=== PATIENT | female | born 1990 ===

== ENCOUNTER 2016-06-28 10:15 | Inpatient (IN) | payer OTHER ==
[2016-06-28 10:31] VITALS: BMI 35.7
[2016-06-28] MEDS ORDERED: Oxytocin 30 units/LR 500ML 30 U/500 ML BAG IV ONE (10:47)
[2016-06-28] MEDS ORDERED: Lidocaine 1% Inj (20ml) ONE (10:47)
[2016-06-28] MEDS: Lactated Ringer's 1,000 ML IV SCH ×2 (11:00→12:00)
--- NOTE | 2016-06-28 11:11 | OBADHP ---
Datetime: 06/28/2016 10:57 Admit Comment, IP Provider: Patient is a 25 yo @ 39.2 with contractions. Some increased disc harge, no vaginal bleeding, +FM. Patient denies antepartum issues, no medical problems, previous x 1, no previous surgeries, no medications VE=8/100/-1 FHR= 130 mod chaparrita +accels, no decels TOCO= ctxing q 2 mins A/P 1. Patient admitted to labor and deliver, IVF started, CBC/Type and Screen 2. CEFM and TOCO 3. Patient would like epidural Pelvic Type - PN: Adequate Extremities - PN: Normal Abdomen - PN: Normal Back - PN: Normal Breast - PN: Normal Lungs - PN: Normal Heart - PN: Normal Thyroid - PN: Normal Neurologic - PN: Normal HEENT - PN: Normal General - PN: Normal FHR - Baseline A Provider: 130 Contraction Comments Provider: q 2 mins Vital Signs Provider: Reviewed; Within Normal Limits IP Chief Complaint: Uterine contractions NICHD Variability Prov Fetus A: Moderate 6-25bpm NICHD Accel Fetus A IP Provider: [id number] NICHD Decel Fetus A IP Provider: None Dilatation, Provider: 8 Effacement, Provider: 100 Station, Provider: -1 Genitourinary Exam: Normal DTRs - PN: Normal EGA AdmitDate IP: 39.2 IP Adm Impression: Term, intrauterine IP Admit Plan: Admit to unit; Initiate labor protocol Datetime: 03/01/2016 22:28 IP Chief Complaint Other: cramps
[2016-06-28] MEDS: Oxytocin 30 units/LR 500ML 30 U/500 ML BAG IV SCH ×3 (11:30→12:54)
[2016-06-28 11:31] LABS: BASO # 0.1 K/uL (0.0-0.2); BASO % 0.7 % (0.0-2.0); EOS % 0.3 % (0.0-4.0); HEMATOCRIT 36.1 % (34.0-47.0); LYMPH # 1.4 K/uL (1.0-4.3); LYMPH % 10.9 % (20.0-40.0); MEAN CELL VOLUME 82.7 fl (81.0-99.0); MEAN CORPUSCULAR HEMOGLOBIN 26.3 pg (27.0-31.0); MEAN CORPUSCULAR HGB CONC 31.8 g/dL (33.0-37.0); MEAN PLATELET VOLUME 8.2 fl (7.2-11.7); MONO % 7.6 % (0.0-10.0); NEUT # 10.5 K/uL (1.8-7.0); NEUT % 80.5 % (50.0-75.0); RED CELL DISTRIBUTION WIDTH 16.7 % (11.5-14.5); WHITE BLOOD COUNT 13.1 K/uL (4.8-10.8)
[2016-06-28 11:40] VITALS: BP 127/61; PULSE 83; RESP 18; TEMP 97.3
[2016-06-28] MEDS ORDERED: Oxycodone/Acetaminophen 5/325 mg Tab PO PRN ×2 (11:41→14:20)
--- NOTE | 2016-06-28 11:57 | OBDS ---
DELIVERY PERSONNEL Delivery Doctor: Andrea Najera MD Component Technician: Kelly Carpenter RN MATERNAL INFORMATION Delivery Anesthesia: Local Medications in Delivery: pitocin Estimated Blood Loss (ml): 250cc Placenta Cultured: No Maternal Complications: Other Other Maternal Complications: meconium stained fluid Provider Comments: Delivered a living Baby boy apperars term, cried spontanously aspirated with bulb , AF meconium stained Placenta delivered complete and intact. Uterus contracted well, a small super ficial tear as above repaired as above. Tolerated procedure well no complications A small wart like lession on the lower perineal introital area noted. Rectal done no defects LABOR SUMMARY EDC: 07/03/2016 00:00 No. Babies in Womb: 0 Attempted: No Labor Anesthesia: None LABOR INFORMATION Reason for Induction: Not Applicable Onset of Labor: 06/28/2016 08:00 Oxytocin: N/A Group B Beta Strep: Negative Steroids Given: None Reason Steroids Not Administered: Not Applicable MEMBRANES Membranes Rupture Method: Artificial Rupture of Membranes: 06/28/2016 11:20 Length of Rupture (hrs): 0.05 Amniotic Fluid Color: Light Meconium Amniotic Fluid Amount: Small Amniotic Fluid Odor: Normal STAGES OF LABOR Stage 3 hrs: 0 Stage 3 min: 7 Total Time in Labor hrs: 3 Total Time in Labor min: 30 VAGINAL DELIVERY Episiotomy: None Laceration Extension: First Degree Laceration Type: Vaginal Laceration Repair: Yes Laceration Repair Note: small laceration on the right labia-introital area repaired with 4-0 chromic x2 fig of 8 sutures without any complication Initial Vag Sponge Count: 10 Final Vag Sponge Count: 10 Initial Vag Sharps Count: 2 Final Vag Sharps Count: 2 Sponge Count Correct: Yes Sharps Count Correct: Yes Count Comment: count correct CSECTION DELIVERY Primary Indication: N/A Secondary Indication: N/A CSection Incision: N/A Uterine Closure: N/A BABY A INFORMATION Infant Delivery Date/Time: 06/28/2016 11:23 Method of Delivery: Vaginal Born in Route : No : N/A Forceps: N/A Vacuum Extraction: N/A Shoulder Dystocia : No SHOULDER DYSTOCIA BABY A Delivery Date/Time: 06/28/2016 11:23 PRESENTATION/POSITION BABY A Presentation: Cephalic Cephalic Presentation: Vertex PLACENTA INFORMATION BABY A Placenta Delivery Time : 06/28/2016 11:30 Placenta Method of Delivery: Spontaneous Placenta Status: Delivered SCORES BABY A Heart Rate 1 min: >100 bpm Resp Effort 1 min: Good Cry Reflex Irritability 1 min: Cough or Sneeze or Pulls Away Muscle Tone 1 min: Active Motion Color 1 min: Body [place], Extremities Blue Resuscitation Effort 1 min: Tactile Stimulation SCORE 1 MIN: 9 Heart Rate 5 min: >100 bpm Resp Effort 5 min: Good Cry Reflex Irritability 5 min: Cough or Sneeze or Pulls Away Muscle Tone 5 min: Active Motion Color 5 min: Body [place], Extremities Blue Resuscitation Effort 5 min: Tactile Stimulation SCORE 5 MIN: 9 INFANT INFORMATION BABY A Gestational Age at Delivery: 39.0 Gestational Status: Term Infant Outcome : Liveborn Condition : Stable Infant Sex: Male IDENTIFICATION/MEDS BABY A ID Band Number: [id number] ID Band Location: Left Leg; Left Arm Vitamin K Given : Not Given Erythromycin Given: Not Given WEIGHT/LENGTH BABY A Infant Birthweight (gms): 3370 Weight (lb): 7 Weight (oz): 7 CORD INFORMATION BABY A No. Cord Vessels: 3 Nuchal Cord : N/A Cord Blood Taken: Yes Suction: Mouth; Nose ASSESSMENT BABY A Complications: None Physical Findings at Delivery: Within Normal Limits Respirations: Appears Normal Materials Scheduler/ALS Called : No Infant Care By: dr. Wood Transferred To: [facility]
[2016-06-29 05:42] LABS: HEMATOCRIT 30.1 % (34.0-47.0); MEAN CELL VOLUME 83.2 fl (81.0-99.0); MEAN CORPUSCULAR HEMOGLOBIN 26.8 pg (27.0-31.0); MEAN CORPUSCULAR HGB CONC 32.2 g/dL (33.0-37.0); RED CELL DISTRIBUTION WIDTH 16.7 % (11.5-14.5)
--- NOTE | 2016-06-29 09:23 | OBPPN ---
Datetime: 06/29/2016 09:18 PP Pain Prov: Within normal limits PP Nausea Prov: Denies PP Flatus Prov: Yes PP BM Prov: No PP Breasts Prov: Normal PP Heart Prov: Normal PP Lungs Prov: Normal PP Abdomen/Uterus Prov: Normal PP Lochia Prov: Normal PP Vulva/Perineum Prov: Normal PP CVA Tenderness Prov: Normal PP Extremities Prov: Normal PP Progress Prov: Normal PP Impression Prov: Normal progression PP Plan Prov: Continue present management PP Progress Note Prov: no complaints today continue present care stable ppd 1 IP PP Procedures: None Vital Signs Provider PP: Reviewed; Within Normal Limits
--- NOTE | 2016-06-30 08:44 | OBPPN ---
Datetime: 06/30/2016 08:41 PP Pain Prov: Within normal limits PP Nausea Prov: Denies PP Flatus Prov: Yes PP BM Prov: Yes PP Breasts Prov: Normal PP Heart Prov: Normal PP Lungs Prov: Normal PP Abdomen/Uterus Prov: Normal PP Lochia Prov: Normal PP Vulva/Perineum Prov: Normal PP CVA Tenderness Prov: Normal PP Extremities Prov: Normal PP Progress Prov: Normal PP Impression Prov: Normal progression PP Plan Prov: Continue present management PP Progress Note Prov: stable ppd2 dc home today IP PP Procedures: None Vital Signs Provider PP: Reviewed; Within Normal Limits
--- NOTE | 2016-06-30 08:48 | OBDCSUM ---
Datetime: 06/30/2016 08:43 Discharged to, Provider: Home Follow up at, Provider: Disch Instr Activity: May be up to bathroom; May be up for meals; May Shower Disch Instr Diet: Regular Discharge Instructions, Provider: Routine instructions given Discharge Diagnosis, Provider: Term Delivered Discharge Time: 06/30/2016 08:43 Follow up in weeks, Provider: 5-6 weeks Disch Referrals: None Disch Activity Restrictions: No exercising; No lifting; No driving; Minimize walking; Minimize stair -climbing; No sexual activity; Nothing in vagina - [place], tampons, douche Discharge Comment, Provider: dc home today rto 5-65 weeks call office if any problems Contraception after Delivery: Undecided
== END 2016-06-30 14:30 | disposition home or self-care (01) | DRG 373 ==
LOC: H.EROB2 10:15 → H.L&D 10:54 → H.OB/GYN 13:55
PROVIDERS: ADMIT Specialist; ATTEND Specialist
PROC: 10E0XZZ Delivery of Products of Conception, External Approach (ICD-10-PCS; principal; 2016-06-28)
PROC: 4A1HXCZ Monitoring of Products of Conception, Cardiac Rate, External Approach (ICD-10-PCS; 2016-06-28)
DX: O70.0 First degree perineal laceration during delivery (principal); O77.0 Labor and delivery complicated by meconium in amniotic fluid; Z37.0 Single live birth; Z3A.39 39 weeks gestation of pregnancy

== ENCOUNTER 2017-03-20 02:54 | Emergency (ER) | payer SELFPAY ==
[2017-03-20 02:54] VITALS: BMI 35.7
[2017-03-20 03:06] VITALS: BP 133/82; PULSE 100; RESP 18; TEMP 97.6; O2SAT 98
--- NOTE | 2017-03-20 03:14 | ED PDOC ---
HPI: General Adult Time Seen by Provider: 03/20/17 03:13 Chief Complaint (Nursing): Flu-like Symptoms Chief Complaint (Provider): COUGH History Per: Patient (26 Y/O FEMALE HERE WITH COUGH X 4 DAYS. NOTES NASAL CONGESTION. DENIES ANY VOMITING/DIARRHEA/FEVERS/CHILLS. TAKING ROBITUSSIN FOR SYMPTOMS. PATIENT'S INFANT IS POSITIVE WITH INFLUENZA B.) Past Medical History Reviewed: Historical Data, Nursing Documentation, Vital Signs Vital Signs: Last Vital Signs Temp 97.6 F 03/20/17 03:03 Pulse 100 H 03/20/17 03:03 Resp 18 03/20/17 03:03 BP 133/82 03/20/17 03:03 Pulse Ox 98 03/20/17 05:57 - Family History Family History: States: No Known Family Hx - Home Medications Home Medications: Ambulatory Orders Medication Instructions Recorded Multivit/Folic Acid/I 1 tab PO DAILY 06/28/16 [] Oseltamivir [Tamiflu] 75 mg PO DAILY #5 cap 03/20/17 Pseudoephedrine [Sudafed Tab] 60 mg PO Q6 PRN #24 tab 03/20/17 - Allergies Allergies/Adverse Reactions: Allergies Allergy/AdvReac Type Severity Reaction Status Date / Time No Known Allergies Allergy Verified 03/20/17 03:03 Review of Systems ROS Statement: Except As Marked, All Systems Reviewed And Found Negative Constitutional: Positive for: Fever Respiratory: Positive for: Cough Physical Exam - Reviewed Nursing Documentation Reviewed: Yes Vital Signs Reviewed: Yes - Physical Exam Appears: Positive for: Well, Non-toxic, No Acute Distress Head Exam: Positive for: ATRAUMATIC, NORMAL INSPECTION, NORMOCEPHALIC Skin: Positive for: Normal Color, Warm, DRY Eye Exam: Positive for: EOMI, Normal appearance, PERRL ENT: Positive for: Normal ENT Inspection Neck: Positive for: Normal, Painless ROM Cardiovascular/Chest: Positive for: Regular Rate, Rhythm Respiratory: Positive for: CNT, Normal Breath Sounds Gastrointestinal/Abdominal: Positive for: Normal Exam, Bowel Sounds, Soft Back: Positive for: Normal Inspection Extremity: Positive for: Normal ROM Neurologic/Psych: Positive for: Alert, Oriented - ECG O2 Sat by Pulse Oximetry: 98 - Progress ED Course And Treament: INFLUENZA A/B NEGATIVE PATIENT APPEARS TO HAVE URI. WE WILL OFFER TAMIFLU PROPHYLAXIS HER SON IS POSITIVE WITH FLU B Disposition - Clinical Impression Clinical Impression: Cough - Patient ED Disposition Is Patient to be Admitted: No - Disposition Disposition: Routine/Home Disposition Time: 05:05 Condition: FAIR Prescriptions: Oseltamivir [Tamiflu] 75 mg PO DAILY #5 cap Pseudoephedrine [Sudafed Tab] 60 mg PO Q6 PRN #24 tab PRN Reason: Nasal Congestion Instructions: Viral Syndrome (ED) Forms: [email or web address] Connect (Ukrainian), [facility] ED School/Work Excuse
== END 2017-03-20 05:05 | disposition home or self-care (01) ==
LOC: H.ER 02:54
DX: B34.9 Viral infection, unspecified (principal)

== ENCOUNTER 2017-04-05 14:39 | Emergency (ER) | payer OTHER ==
[2017-04-05 14:39] VITALS: BMI 35.7
[2017-04-05 14:52] VITALS: BP 123/67; PULSE 102; RESP 18; TEMP 97; O2SAT 97
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
--- NOTE | 2017-04-05 16:07 | RAD ---
PROCEDURE: Radiographs of the left elbow. HISTORY: pain COMPARISON: No prior. FINDINGS: BONES: Bone alignment and mineralization are normal. There is no acute displaced fracture or bone destruction. JOINTS: Normal. SOFT TISSUES: Normal. JOINT EFFUSION: None. OTHER FINDINGS: None IMPRESSION: No acute fracture or dislocation.
== END 2017-04-05 17:06 | disposition home or self-care (01) ==
LOC: H.ER 14:39
DX: S50.02XA Contusion of left elbow, initial encounter (principal); V43.52XA Car driver injured in collision with other type car in traffic accident, initial encounter; Y92.410 Unspecified street and highway as the place of occurrence of the external cause

== ENCOUNTER 2018-02-24 15:46 | Emergency (ER) | payer OTHER ==
[2018-02-24 15:46] VITALS: BMI 35.7
[2018-02-24 16:42] VITALS: BP 132/75; PULSE 86; RESP 18; TEMP 98.3; O2SAT 99
--- NOTE | 2018-02-24 18:07 | ED PDOC ---
HPI: Female Pain Time Seen by Provider: 02/24/18 18:05 Chief Complaint (Nursing): Female Genitourinary Chief Complaint (Provider): vaginal bleeding/abdominal pain History Per: Patient (27 y/o female approx 8 weeks gestation here with vaginal spotting noted today. Patient notes additional abdominal pain/back pain. Denies any dysuria. Patient has appt next week with clinical research assistant for ultrasound but has not done so.) Past Medical History Reviewed: Historical Data, Nursing Documentation, Vital Signs Vital Signs: Last Vital Signs Temp 98.3 F 02/24/18 16:39 Pulse 86 02/24/18 16:39 Resp 18 02/24/18 16:39 BP 132/75 02/24/18 16:39 Pulse Ox 99 02/24/18 16:39 - Family History Family History: States: Unknown Family Hx - Home Medications Home Medications: Ambulatory Orders Medication Instructions Recorded Multivit/Folic Acid/I 1 tab PO DAILY 06/28/16 [] Oseltamivir Cap [Tamiflu] 75 mg PO DAILY #5 cap 03/20/17 Pseudoephedrine [Sudafed Tab] 60 mg PO Q6 PRN #24 tab 03/20/17 Naproxen 500 mg PO BID PRN #20 tablet 04/05/17 - Allergies Allergies/Adverse Reactions: Allergies Allergy/AdvReac Type Severity Reaction Status Date / Time No Known Allergies Allergy Verified 03/20/17 03:03 Review of Systems ROS Statement: Except As Marked, All Systems Reviewed And Found Negative Gastrointestinal: Positive for: Abdominal Pain Genitourinary Female: Positive for: Vaginal Bleeding Physical Exam - Reviewed Nursing Documentation Reviewed: Yes Vital Signs Reviewed: Yes - Physical Exam Appears: Positive for: Well, Non-toxic, No Acute Distress Head Exam: Positive for: ATRAUMATIC, NORMAL INSPECTION, NORMOCEPHALIC Skin: Positive for: Normal Color, Warm, DRY Eye Exam: Positive for: EOMI, Normal appearance, PERRL ENT: Positive for: Normal ENT Inspection Neck: Positive for: Normal, Painless ROM Cardiovascular/Chest: Positive for: Regular Rate, Rhythm Respiratory: Positive for: CNT, Normal Breath Sounds Gastrointestinal/Abdominal: Positive for: Normal Exam, Soft Back: Positive for: Normal Inspection Extremity: Positive for: Normal ROM Neurologic/Psych: Positive for: Alert, Oriented - Laboratory Results Result Diagrams: 02/24/18 18:15 02/24/18 19:30 - ECG O2 Sat by Pulse Oximetry: 99 - Progress ED Course And Treament: TRANSVAGINAL US: Intrauterine gestational sac with estimated gestational age 6 weeks 1 day. Gestational sac contour appears somewhat irregular. 9 mm yolk sac, enlarged. pole is not identified. Correlate clinically. Follow-up as indicated. Disposition - Clinical Impression Clinical Impression: Threatened - Patient ED Disposition Is Patient to be Admitted: No - Disposition Disposition: Routine/Home Disposition Time: 19:53 Condition: FAIR Instructions: Bleeding With (DC) Forms: [facility] ED School/Work Excuse
[2018-02-24 18:25] LABS: BASO # 0.1 K/uL (0.0-0.2); BASO % 0.9 % (0.0-2.0); EOS # 0.2 K/uL (0.0-0.7); EOS % 1.5 % (0.0-4.0); HEMOGLOBIN 12.9 g/dL (12.0-16.0); LYMPH # 2.3 K/uL (1.0-4.3); MEAN CELL VOLUME 86.4 fl (81.0-99.0); MEAN CORPUSCULAR HEMOGLOBIN 28.7 pg (27.0-31.0); MEAN CORPUSCULAR HGB CONC 33.2 g/dL (33.0-37.0); MEAN PLATELET VOLUME 7.6 fl (7.2-11.7); MONO # 0.8 K/uL (0.0-0.8); MONO % 7.7 % (0.0-10.0); NEUT # 7.2 K/uL (1.8-7.0); NEUT % 67.9 % (50.0-75.0); NRBC % 0.1 % (0.0-0.0); RBC 4.5 Mil/uL (3.80-5.20); RED CELL DISTRIBUTION WIDTH 14.7 % (11.5-14.5); WHITE BLOOD COUNT 10.5 K/uL (4.8-10.8)
--- NOTE | 2018-02-24 18:58 | US ---
[place] [facility] [place]: threatened [place]riage Comparison: OB limited ultrasound performed 11/08/15 Technique: Ob transvaginal ultrasound. Findings: Uterus measures approximately 9.0 x 5.4 x 7.2 cm. Anteverted. Cervix length measures approximately 4.3 cm. There is a single intrauterine fetus present. 9 mm yolk sac. The gestational sac measures 1.8 cm and is compatible with a gestational age of 6 weeks 1 day. Gestational sac contour appears somewhat irregular. pole is not identified. The right ovary measures 3.8 x 2.6 x 3.4 cm and contains 1.5 cm cyst. The left ovary measures 3.2 x 2.2 x 1.7 cm. Blood flow was demonstrated to both ovaries. Impression: Intrauterine gestational sac with estimated gestational age 6 weeks 1 day. Gestational sac contour appears somewhat irregular. 9 mm yolk sac, enlarged. pole is not identified. Correlate clinically. Follow-up as indicated.
[2018-02-24 19:46] LABS: BLOOD UREA NITROGEN 8 mg/dl (7-17); CALCIUM 9.6 mg/dL (8.4-10.2); GFR NON-AFRICAN AMERICAN > 60
== END 2018-02-24 18:45 | disposition home or self-care (01) ==
LOC: H.ER 15:46
DX: O20.0 Threatened abortion (principal); Z3A.08 8 weeks gestation of pregnancy

== ENCOUNTER 2018-03-03 22:11 | Emergency (ER) | payer OTHER ==
[2018-03-03 22:12] VITALS: BMI 35.7
[2018-03-03] MEDS ORDERED: Sodium Chloride 0.9% 1,000 ML IV STA (22:54)
[2018-03-03 23:06] LABS: BASO % 0.5 % (0.0-2.0); EOS # 0.2 K/uL (0.0-0.7); EOS % 2.8 % (0.0-4.0); HEMOGLOBIN 12.5 g/dL (12.0-16.0); LYMPH # 1.5 K/uL (1.0-4.3); LYMPH % 22.5 % (20.0-40.0); MEAN CELL VOLUME 85.7 fl (81.0-99.0); MEAN CORPUSCULAR HEMOGLOBIN 28.4 pg (27.0-31.0); MEAN CORPUSCULAR HGB CONC 33.1 g/dL (33.0-37.0); MEAN PLATELET VOLUME 7.8 fl (7.2-11.7); MONO # 0.8 K/uL (0.0-0.8); MONO % 11.7 % (0.0-10.0); NEUT # 4.3 K/uL (1.8-7.0); NEUT % 62.5 % (50.0-75.0); NRBC % 0.1 % (0.0-0.0); RBC 4.4 Mil/uL (3.80-5.20); RED CELL DISTRIBUTION WIDTH 14.5 % (11.5-14.5); WHITE BLOOD COUNT 6.9 K/uL (4.8-10.8)
[2018-03-03 23:20] LABS: BLOOD UREA NITROGEN 8 mg/dl (7-17); CALCIUM 9.2 mg/dL (8.4-10.2); GFR NON-AFRICAN AMERICAN > 60
--- NOTE | 2018-03-03 23:53 | ED PDOC ---
HPI: Female Pain Time Seen by Provider: 03/03/18 22:52 Chief Complaint (Nursing): Female Genitourinary Chief Complaint (Provider): Female Genitourinary History Per: Patient History/Exam Limitations: no limitations Onset/Duration Of Symptoms: Days Current Symptoms Are (Timing): Still Present Additional Complaint(s): 27 y/o female who is approximately 7-8 weeks presents to the ED for evaluation of worsening vaginal bleeding. Patient worked up for possible m iscarriage approximately 2-3 days ago with an IUP without pole seen. Patient reports of having soaked through 5 pads within the last couple of hours. Patient notes large clots and worsening pain. Patient states she has not seen passage of tissue. Otherwise, patient denies vomiting and fever. PMD: Joo Orozco Abnormal Vaginal Bleeding: Yes Past Medical History Reviewed: Historical Data, Nursing Documentation, Vital Signs Vital Signs: Last Vital Signs Temp 97.8 F 03/03/18 22:24 Pulse 96 H 03/03/18 22:24 Resp 17 03/03/18 22:24 BP 115/76 03/03/18 22:24 Pulse Ox 96 03/03/18 22:24 - Medical History PMH: No Chronic Diseases - Surgical History Surgical History: No Surg Hx - Family History Family History: States: Unknown Family Hx - Home Medications Home Medications: Ambulatory Orders Medication Instructions Recorded RX: Multivit/Folic Acid/I 1 tab PO DAILY 06/28/16 [] Oseltamivir Cap [Tamiflu] 75 mg PO DAILY #5 cap 03/20/17 RX: Pseudoephedrine [Sudafed Tab] 60 mg PO Q6 PRN #24 tab 03/20/17 RX: Naproxen 500 mg PO BID PRN #20 tablet 04/05/17 - Allergies Allergies/Adverse Reactions: Allergies Allergy/AdvReac Type Severity Reaction Status Date / Time No Known Allergies Allergy Verified 03/03/18 22:29 Review of Systems ROS Statement: Except As Marked, All Systems Reviewed And Found Negative Constitutional: Negative for: Fever Gastrointestinal: Negative for: Vomiting Genitourinary Female: Positive for: Vaginal Bleeding Physical Exam - Reviewed Nursing Documentation Reviewed: Yes Vital Signs Reviewed: Yes - Physical Exam Appears: Positive for: Uncomfortable Head Exam: Positive for: ATRAUMATIC Skin: Positive for: Normal Color, Warm, Dry Eye Exam: Positive for: Normal appearance, EOMI, PERRL Neck: Positive for: Normal, Painless ROM Cardiovascular/Chest: Positive for: Regular Rate, Rhythm. Negative for: Murmur Respiratory: Positive for: Normal Breath Sounds. 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 Negative for: L CVA Tenderness, R CVA Tenderness Extremity: Positive for: Normal ROM. Negative for: Deformity Neurologic/Psych: Positive for: Alert, Oriented. Negative for: Motor/Sensory Deficits - Laboratory Results Result Diagrams: 03/03/18 23:03 03/03/18 23:03 Lab Results: Beta HCG, Quant 1861.70 mIU/mL 03/03/18 23:03 - ECG O2 Sat by Pulse Oximetry: 96 (RA) Pulse Ox Interpretation: Normal Medical Decision Making Medical Decision Making: Time: 2254 A/P: Workup for threatened -- HCG for comparison -- Repeat Pelvic US for presence of IUP -- IV fluids and Tylenol for pain -- Reassess patient -- BMP -- Beta-HCG, Quantitative -- CBC with differentials -- Sodium Chloride IV 1000 mls/hr -- Tylenol 650 mg PO -- US Preg 1st Trimester/OB TV Time: 17 US RESULTS Findings: The uterus measures 11x6.7x8 cm. Normal cervical length measuring 4.5 cm. Anteverted uterus. Fundal fibroid is noted measuring 2.3 cm. No evidence of intrauterine . Normal ovaries. Impression: Heterogeneous complex endometrium without evidence of intrauterine . The maximum thickness of the endometrium is 20 mm. Electronically signed on Mar 04, 2018 12:18:50 AM EST by: Ricardo Felix M.D., Certified by [facility], MSK, Neuroradiology Time: 39 -- Discussed miscarriage with patient. Labs within normal limits. Patient to return to ED if bleeding worsens, pain worsens or development of weakness, palpitations, nausea, vomiting or fever. Patient instructed to contact Guidance Counselor tomorrow for a follow up with provider next week. Work note additionally given for absence. Patient is O+ and does not need rhogan. Scribe Attestation: Documented by Derek Barone, acting as a scribe for Winter Wilson MD. Provider Scribe Attestation: All medical record entries made by the Scribe were at my direction and personally dictated by me. I have reviewed the chart and agree that the record accurately reflects my personal performance of the history, physical exam, medical decision making, and the department course for this patient. I have also personally directed, reviewed, and agree with the discharge instructions and disposition. Disposition - Clinical Impression Clinical Impression: Miscarriage - Patient ED Disposition Is Patient to be Admitted: No Counseled Patient/Family Regarding: Studies Performed, Diagnosis, Need For Followup - Disposition Disposition: Routine/Home Disposition Time: 00:40 Condition: STABLE Additional Instructions: Contact chief electrician later today (03/04/18) to arrange follow up early next week. Return to the emegency department if you develop worsened bleeding, dizziness, weakness, fever, or other new symptoms. Instructions: Dealing With Miscarriage, Miscarriage (DC) Forms: [employer] [facility] ([place]an), [facility] ED School/Work Excuse Print Language: IRANIAN
[2018-03-04 01:05] VITALS: BP 120/81; PULSE 90; RESP 16; TEMP 98.2
--- NOTE | 2018-03-04 11:50 | US ---
Date of service: 03/03/2018 PROCEDURE: First trimester ultrasound LMP 12/29/2017. HISTORY: vaginal bleed, poss COMPARISON: 02/24/2018. Summary of findings on the comparison examination: Irregular gestational sac contour. Yolk sac documented. No pole visible at that time. TECHNIQUE: Standard protocol for this study/examination. FINDINGS: Uterus measures 6.7 x 8 x 11 cm. Posterior fundal fibroid 1.9 x 2.1 x 2 No visible intrauterine products of conception. Endometrial echo complex 12.2 mm. Endometrium is mildly heterogeneous. Closed cervix 4.57 cm. Right adnexa: 1.7 x 3.1 cm. Multiple subcentimeter follicles. Left adnexa 1.5 x 3.3 cm. Multiple subcentimeter follicles. IMPRESSION: No visible intrauterine or ectopic products of conception. Gestational sac identified previously no longer apparent. Normal thickness, heterogeneous endometrial echo complex. Closed cervix 4.6 cm. Concordant findings (preliminary report) provided by [facility].
[2018-03-07 11:13] VITALS: O2SAT 96
== END 2018-03-04 00:55 | disposition home or self-care (01) ==
LOC: H.ER 22:11
DX: O03.9 Complete or unspecified spontaneous abortion without complication (principal); Z3A.08 8 weeks gestation of pregnancy
CPT/HCPCS: 76805; 76817; 80048; 84702; 85025; 96360; 99283; J7030